=== PATIENT | female | born 1970 | race Caucasian/White ===

== ENCOUNTER → 2019-11-11 | Day surgery (SDC) | payer OTHER, MEDICAID ==
[~2019-11-11] VITALS: Ht 170.1 cm; Wt 108.9 kg
[~2019-11-11] MED LIST: CHANTIX0.5 MG PO; EFFEXOR37.5 MG PO; FLONASE0.05 MG/AC NS; KLONOPIN2 MG PO; LIPITOR40 MG PO; LOPRESSOR50 M1 PO; NORVASC10 MG PO; PEPCID40 MG PO; PREDNICOT20 MG PO; PRILOSEC20 MG PO; PROTONIX TR40 M1 PO; VICODIN ES 7501 TA1 PO; ZESTRIL40 MG PO; ZOCOR40 MG PO
[2019-11-11 11:06] VITALS: BP 114/74
[2019-11-11 11:54] VITALS: BP 131/90
[2019-11-11 12:09] VITALS: BP 146/82
[2019-11-11 12:24] VITALS: BP 146/86
== END | disposition home or self-care (01) ==
LOC: SDC 11-07 12:30
DX: K92.2 Gastrointestinal hemorrhage, unspecified (principal); I25.10 Atherosclerotic heart disease of native coronary artery without angina pectoris; I10 Essential (primary) hypertension; K21.9 Gastro-esophageal reflux disease without esophagitis; F32.9 Major depressive disorder, single episode, unspecified; G43.909 Migraine, unspecified, not intractable, without status migrainosus; M19.90 Unspecified osteoarthritis, unspecified site; I25.2 Old myocardial infarction; Z68.37 Body mass index [BMI] 37.0-37.9, adult; E66.01 Morbid (severe) obesity due to excess calories; Z98.890 Other specified postprocedural states; Z79.899 Other long term (current) drug therapy; Z83.3 Family history of diabetes mellitus